=== PATIENT | male | born 1960 | race Caucasian/White ===

== ENCOUNTER → 2023-10-17 11:10 | Outpatient (REF) | payer BC, SELFPAY | LOC: HWRAD 11:10 | PROVIDERS: ATTENDING PHYSICIAN Nurse Practitioner Family | DX: M25.571 Pain in right ankle and joints of right foot (principal); M25.471 Effusion, right ankle | CPT/HCPCS: 73610 ==

== ENCOUNTER 2023-11-09 06:18 | Day surgery (SDC) | payer BC, SELFPAY ==
[2023-11-09] VITALS (8 sets, daily range): BP systolic 113–149; BP diastolic 68–93; BMI 28.0
[2023-11-09] MEDS: CELEBREX 200 MG PO (07:43)
[2023-11-09] MEDS: NORMOSOL-R 1000 IV (07:43)
[2023-11-09] MEDS: TYLENOL 1000 MG PO (07:43)
[2023-11-09] MEDS: ROXICODONE 5 MG PO (11:10)
== END 2023-11-09 11:35 | disposition home or self-care (01) ==
LOC: SDS 06:18
PROVIDERS: ATTENDING PHYSICIAN Student in an Organized Health Care Education/Training Program; FAMILY PHYSICIAN Nurse Practitioner Family
DX: S82.841A Displaced bimalleolar fracture of right lower leg, initial encounter for closed fracture (principal); S93.439A Sprain of tibiofibular ligament of unspecified ankle, initial encounter; X50.1XXA Overexertion from prolonged static or awkward postures, initial encounter
CPT/HCPCS: 27814; 27829; 36415; 73610; 76000; 93005; C1713

== ENCOUNTER → 2024-01-02 07:45 | Outpatient (REF) | payer BC, SELFPAY | LOC: HWRAD 07:45 | PROVIDERS: ATTENDING PHYSICIAN Nurse Practitioner Family | DX: E80.6 Other disorders of bilirubin metabolism (principal); R19.8 Other specified symptoms and signs involving the digestive system and abdomen | CPT/HCPCS: 76700; 76856 ==

== ENCOUNTER → 2024-08-09 17:17 | Outpatient (REF) | payer BC, SELFPAY | LOC: MRI 3T 17:17 | PROVIDERS: ATTENDING PHYSICIAN Internal Medicine Infectious Disease | DX: N28.89 Other specified disorders of kidney and ureter (principal) | CPT/HCPCS: 74183; A9575 ==

== ENCOUNTER → 2024-10-21 07:40 | Outpatient (REF) | payer BC, SELFPAY | LOC: HWRAD 07:40 | PROVIDERS: ATTENDING PHYSICIAN Nurse Practitioner Family | DX: M85.89 Other specified disorders of bone density and structure, multiple sites (principal) | CPT/HCPCS: 77080 ==